=== PATIENT | female | born 1965 | race Caucasian/White ===

== ENCOUNTER 2017-03-31 11:07 | Emergency (ER) | payer MEDICAID ==
[~2017-03-31 11:07] MED LIST: ADVIL DPS200 MG PO; ASA CHILDREN'S81 MG PO; ASPIR 8181 MG PO; COLACE100 MG PO; COREG DPS3.125 MG PO; COREG6.25 MG PO; GLUCOPHAGE-DPS500 MG PO; HYDROCODONE 5MG/5 MG PO; LISINOPRIL-HCT1 EAC1 PO; MAALOX DPS30 ML PO; MACROBID DPS100 MG PO; MERREM1 GM IV; MIRALAX PACKET17 GM PO; MOTRIN IB200 MG PO; NITROSTAT0.4 MG SL; NORMAL SALINE FL5 ML IV; OMEPRAZOLE20 MG PO; PRILOSEC DPS20 MG PO; PROBIOTIC1 EAC1 PO; SODIUM CHLORID500 ML IV; SURFAK DPS240 MG PO; TYLENOL DPS325 MG PO; VANCOCIN-DPS1 GM IV; ZOCOR DPS20 MG PO; ZOFRAN4 M1 PO; [UNRECOGNIZED DRUG - OTHER] IV; [UNRECOGNIZED DRUG - REMARK] PO
--- NOTE | 2017-04-08 14:34 | ER ---
ADMIT: 03/31/2017 RM/LOC: ER [facility] MR#: [id number] [address] [id number] TYRELL GLOVER [address] [place] [address] Emergency Room Report SEX: F AGE: 51 : 1965 DATE: 03/31/2017 ADDENDUM: The patient comes into the ER with sharp stabbing abdominal pain. It started suddenly at 5:00 a.m. She states it is the worse pain she has ever had. Come to the ER writhing in pain, very tearful, and loud. On physical exam, all her pain seems to be in the epigastric and right upper quadrant. She states this is the similar pain she had when she had her gallbladder out. 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 Her labs are stable. She was given morphine and Ativan which did relieve her pain. Her ultrasound was negative for anything acute. Her alkaline phosphatase was slightly elevated at 208. Liver enzymes and lipase were normal. She was pain-free upon discharge. I did write a prescription for Tylenol 3, which she mentioned that she recently ran out of. We will have her follow up with Dr. Anglin this week. Please see my T-sheet. LAURA Salazar / Devyn Keating MD / modl JOB #: [id number] CC: Devyn Keating MD, Attending Physician
== END 2017-03-31 15:00 | disposition home or self-care (01) ==
LOC: ER 11:07
DX: R10.11 Right upper quadrant pain (principal); F41.9 Anxiety disorder, unspecified; F31.9 Bipolar disorder, unspecified; I10 Essential (primary) hypertension; Z90.49 Acquired absence of other specified parts of digestive tract; Z90.710 Acquired absence of both cervix and uterus; Z79.899 Other long term (current) drug therapy; Z79.82 Long term (current) use of aspirin